=== PATIENT | male | born 1965 | race African-American/Black ===

== ENCOUNTER 2020-10-07 15:27 | Emergency (ER) | payer OTHER, MEDICAID ==
[~2020-10-07] VITALS: Ht 167.6 cm; Wt 61.2 kg
[2020-10-07 15:28] VITALS: BP 124/76
[2020-10-07 17:03] LABS: ABSOLUTE NEUTROPHILS 5.7 thou/uL (1.4-8.2); BASOPHILS 0.3 % (0.0-2.0); EOSINOPHILS 1.5 % (0.0-3.0); HEMATOCRIT 41.4 % (42.0-52.0); HEMOGLOBIN 12.9 gm/dL (14.0-18.0); LYMPHOCYTES 21.4 % (24.0-44.0); MCH 26.7 pg (26.0-34.0); MCHC 31.1 g/dL (28.0-37.0); MCV 85.8 fL (80.0-100.0); MONOCYTES 8.2 % (1.0-8.0); PLATELET COUNT 214 thou/uL (150-400); POLYS 68.6 % (36.0-66.0); RBC 4.83 mil/uL (4.50-6.00); RDW 15.1 % (10.5-14.5); WBC 8.3 thou/uL (4.0-11.0)
[2020-10-07 17:04] LABS: CREATININE 0.9 mg/dL (0.7-1.3); POTASSIUM 4.6 mmol/L (3.5-5.1)
[2020-10-07 17:10] LABS: TOTAL BILIRUBIN 0.3 mg/dL (0.2-1.0); TOTAL PROTEIN 6.6 g/dL (6.4-8.2)
[2020-10-07 19:04] LABS: URINE BILIRUBIN NEGATIVE (Negative); URINE BLOOD NEGATIVE (Negative); URINE CLARITY CLEAR; URINE COLOR YELLOW; URINE GLUCOSE-RANDOM* 2+ (Negative); URINE KETONES NEGATIVE (Negative); URINE LEUKOCYTES-REFLEX NEGATIVE (Negative); URINE NITRITE-REFLEX NEGATIVE (Negative); URINE PROTEIN (DIPSTICK) NEGATIVE (Negative); URINE SPECIFIC GRAVITY 1.015 (1.005-1.035); URINE UROBILINOGEN 0.2 E.U./dl (0.2-1.0)
[2020-10-07 19:13] LABS: AMP/METHAMP Negative (Negative); BARBITURATES Negative (Negative); BENZODIAZEPINES Negative (Negative); COCAINE Negative (Negative); METHADONE Negative (Negative); OPIATES Negative (Negative); PCP Negative (Negative)
--- NOTE | 2020-10-07 19:32 | NUR ---
SON ANI- [phone] ERICA SON'S GIRLFRIEND- [phone]
--- NOTE | 2020-10-07 19:59 | NUR ---
CALLED SON AT THIS TIME. NO ANSWER. WILL ATTEMPT TO CALL AT A LATER TIME
--- NOTE | 2020-10-07 20:03 | NUR ---
SPOKE WITH PATIENT'S SON'S GIRLFRIEND AT THIS TIME. SHE STATES THAT SHE THINKS SON IS ON HIS WAY TO PICK PATIENT UP. GIRLFRIEND MADE AWARE THAT WE HAVE BEEN WAITING FOR MORE THAN AN HOUR FROM THE LAST TIME WE SPOKE WITH SON NOTIFYING HIM THAT PATIENT WAS READY TO BE PICKED UP. GIRLFRIEND STATES SHE WILL MAKE SURE THAT HE IS ON HIS WAY TO PICK PATIENT UP
[2020-10-07 20:34] VITALS: BP 144/73
--- NOTE | 2020-10-07 20:52 | NUR ---
SON ARRIVED TO BEDSIDE. NURSE COMPLETING GLUCOSE TESTING TEACHING.
== END 2020-10-07 21:11 | disposition home or self-care (01) ==
LOC: ER 15:27 → EROBS 17:29 → ER 17:29
PROVIDERS: Emergency Medicine
DX: E10.649 Type 1 diabetes mellitus with hypoglycemia without coma (principal); F03.90 Unspecified dementia, unspecified severity, without behavioral disturbance, psychotic disturbance, mood disturbance, and anxiety